=== PATIENT | female | born 1965 | race Caucasian/White ===

== ENCOUNTER 2020-02-05 11:25 | Outpatient (CLI) | payer BC, SELFPAY ==
--- NOTE | ~2020-02-05 | MM_ITS ---
EXAMINATION: MM screening [facility] BI w inna HISTORY: Screening mammogram TECHNIQUE: Craniocaudal and mediolateral oblique 3-D tomosynthesis images were obtained and synthetic 2-D images were generated. CAD analysis was submitted and interpreted. COMPARISON: 01/23/2019 bilateral digital screening mammogram 01/12/2018 diagnostic left digital mammogram and limited left breast ultrasound 12/28/2017 bilateral digital screening mammogram BREAST PARENCHYMAL COMPOSITION: There are scattered areas of fibroglandular density. FINDINGS: Asymmetric densities are noted in the posterior mid to upper lateral left breast, not evide nt on 01/23/2019. Diagnostic left mammogram and left breast ultrasound examination are recommended. Otherwise there is no evidence of suspicious mass, calcification, or architectural distortion to sug gest malignancy in either breast. There has been no other suspicious interval change. IMPRESSION: 1. New posterior mid to upper lateral left breast densities. 2. Diagnostic left mammogram and left breast ultrasound examination are recommended. BI-RADS Category 0: Incomplete: Needs additional imaging evaluation. Reviewed, dictated and finalized at location A. OR ADMINISTRATOR SUPPORT IMPRESSION: 1. New posterior mid to upper lateral left breast densities. 2. Diagnostic left mammogram and left breast ultrasound examination are recomme nded. BI-RADS Category 0: Incomplete: Needs additional imaging evaluation.
== END 2020-02-05 11:26 | disposition home or self-care (01) ==
LOC: ANHIMG 11:27
PROVIDERS: PCP Internal Medicine; Visit Provider Student in an Organized Health Care Education/Training Program
DX: Z12.31 Encounter for screening mammogram for malignant neoplasm of breast (principal); R92.8 Other abnormal and inconclusive findings on diagnostic imaging of breast
CPT/HCPCS: 77063; 77067

== ENCOUNTER 2020-03-09 11:16 | Outpatient (CLI) | payer BC, SELFPAY ==
--- NOTE | ~2020-03-09 | MMUS_ITS ---
EXAMINATION: MM diagnostic mammo unilat LT, US breast LT limited HISTORY: Left breast asymmetry on screening mammogram TECHNIQUE: Additional 3-D tomosynthesis images of the left breast were performed and synthetic 2-D im ages were generated. CAD analysis was submitted and interpreted. High resolution limited left breast ultrasound was performed. COMPARISON: 02/05/2020, 01/23/2019, 01/22/2018, 12/28/2017 FINDINGS: MAMMOGRAPHIC FINDINGS: An approximately 10 mm x 2 mm linear equal density mass is seen at the 3:00 location in the posterior third of the breast 12 cm from the nipple which appears to be contiguous by a thin line of tissue wi th a 4 mm mass located slightly more posteriorly. On some images, this has an appearance similar to c omparison mammograms. No suspicious calcification or architectural distortion are identified. ULTRASOUND: There are intramammary lymph nodes at the 3:00 location 13 cm from the nipple which account for the m ammographic finding in question. No suspicious interval change is identified. IMPRESSION: 1. No mammographic or sonographic evidence of malignancy. 2. Recommend routine screening mammography in one year. BI-RADS Category 2: Benign finding(s). Reviewed, dictated and finalized at location A. 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 No mammographic or sonographic evidence of malignancy. 2. Recommend routine screening mammography in one year. BI-RADS Category 2: Benign finding(s).
== END 2020-03-09 11:17 | disposition home or self-care (01) ==
LOC: ANHIMG 11:21
PROVIDERS: PCP Internal Medicine; Visit Provider Student in an Organized Health Care Education/Training Program
DX: R92.8 Other abnormal and inconclusive findings on diagnostic imaging of breast (principal)
CPT/HCPCS: 76642; 77065

== ENCOUNTER 2021-02-10 09:31 | Outpatient (CLI) | payer BC, SELFPAY ==
--- NOTE | ~2021-02-10 | MM_ITS ---
EXAMINATION: MM screening [facility] w inna HISTORY: Screening TECHNIQUE: Craniocaudal and mediolateral oblique 3-D tomosynthesis images were obtained and synthetic 2-D images were generated. CAD analysis was submitted and interpreted. COMPARISON: Comparison to multiple prior studies sequentially, with oldest reviewed study dated 12/05. BREAST PARENCHYMAL COMPOSITION: There are scattered areas of fibroglandular density. FINDINGS: There is no evidence of suspicious mass, calcification, or architectural distortion to sugg est malignancy in either breast. There has been no suspicious interval change. IMPRESSION: 1. No mammographic evidence of malignancy. 2. Recommend routine screening mammography in one year. BI-RADS Category 1: Negative Reviewed, dictated and finalized at location A. 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
== END 2021-02-10 09:32 | disposition home or self-care (01) ==
LOC: ANHIMG 09:34
PROVIDERS: PCP Internal Medicine; Visit Provider Student in an Organized Health Care Education/Training Program
DX: Z12.31 Encounter for screening mammogram for malignant neoplasm of breast (principal)
CPT/HCPCS: 77063; 77067

== ENCOUNTER 2022-06-22 13:22 | Outpatient (CLI) | payer BC, SELFPAY ==
--- NOTE | ~2022-06-22 | MM_ITS ---
EXAMINATION: MM screening [facility] BI w inna HISTORY: Screening mammogram TECHNIQUE: Craniocaudal and mediolateral oblique 3-D tomosynthesis images were obtained and synthetic 2-D images were generated. CAD analysis was submitted and interpreted. COMPARISON: 02/10/2021, 03/09/2020, 02/05/2020 BREAST PARENCHYMAL COMPOSITION: There are scattered areas of fibroglandular density. FINDINGS: No suspicious mass, calcification, or architectural distortion are identified in either khoa ast to suggest malignancy. There has been no suspicious interval change. IMPRESSION: 1. No mammographic evidence of malignancy. 2. Recommend routine screening mammography in one year. BI-RADS Category 1: Negative Reviewed, dictated and finalized at location A.
== END 2022-06-22 13:23 | disposition home or self-care (01) ==
PROVIDERS: PCP Internal Medicine; Visit Provider Nurse Practitioner
DX: Z12.31 Encounter for screening mammogram for malignant neoplasm of breast (principal)
CPT/HCPCS: 77063; 77067

== ENCOUNTER 2024-05-30 07:25 | Outpatient (CLI) | payer BC, SELFPAY ==
--- NOTE | ~2024-05-30 | MM_ITS ---
EXAMINATION: MM screening [facility] BI w inna HISTORY: Screening TECHNIQUE: Craniocaudal and mediolateral oblique 3-D tomosynthesis images were obtained and synthetic 2-D images were generated. CAD analysis was submitted and interpreted. COMPARISON: 06/22/2022 and dating back to 02/05/2020 BREAST PARENCHYMAL COMPOSITION: There are scattered areas of fibroglandular density. FINDINGS: Redemonstration of an intramammary lymph node (likely) within the upper outer quadrant of t he left breast, minimally increased in size from prior (now measuring 5.2 mm compared with 4.0 mm on the previous study in 2022). Otherwise parenchymal pattern without suspicious microcalcifications, architectural distortion, discr ete masses or significant asymmetry. IMPRESSION: 1. No mammographic evidence of malignancy. 2. Recommend routine screening mammography in one year. BI-RADS Category 2: Benign finding(s). Reviewed, dictated and finalized at location A.
--- OUTSIDE RECORDS SUMMARY | 2024-05-30 07:29 | XMS_ITS | Clinical Summary ---
Author Organization [facility] [place] [address] Address [address] [place] [phone] Care Team Providers Care Tongue Carrier Name Role Phone Unknown, Notinfile Primary Care Provider Unavail able Allergies Active Allergy Reactions Criticality Noted Date Comments Cefaclor Rash Medium 10/24/2007 Clonidine Rash Medium 12/27/2021 Bleeding rash Pregabalin Rash Medium 12/27/2021 Gabapentin Unknown 12/27/2021 Penicillins Rash Medium 12/29/2011 Sulfa (Sulfonamide Antibiotics) Rash Medium 10/05 Medications al & mag hydroxide with simethicone-dip henhydramine-li docaine (MAGIC MOUTHWASH) suspension [id number] s:Pharyngitis due to other organism Swish and swallow 10 mL every 4 (four) hours as needed (for pain) 100 mL 12/27/2021 Active Active Problems No known active problems Social History Tobacco Use Types Packs/Day Years Used Date Smoking Tobacco: Never Assessed Comments Unknown Sex and Gender Information Value Date Recorded Sex Assigned at Not on file Legal Sex Female 11:07 AM CDT Gender Identity Not on file Sexual Orientation Not on file Obstetrics History Last Filed Vital Signs Vital Sign Reading Time Taken Comments Blood Pressure 130/83 12/27/2021 2:15 PM CDT Pulse 78 12/27/2021 2:15 PM CDT Temperature 36.9 C (98.4 F) 12/27/2021 2:15 PM CDT Respiratory Rate 16 12/27/2021 2:15 PM CDT Oxygen Saturation 98% 12/27/2021 2:15 PM CDT Inhaled Oxygen Concentration - - Weight 113.4 kg (250 lb) 12/27/2021 2:15 PM CDT Height 174 cm (5' 8.5 ) 12/27/2021 2:15 PM CDT Body Mass Index 37.46 12/27/2021 2:15 PM CDT Plan of Treatment Health Maintenance Due Date Last Done Comments Breast Cancer Screening-Mammogram 1965 Cervical Cancer Screening 1965 Colon Cancer Screening-Colonoscopy 1965 Depression Screening 1965 Hepatitis C Screening 1965 DTaP/Tdap/Td Vaccine (1 - Tdap) 01/02/1975 Hepatitis B Screening 01/02/1982 Regular Well Visit/Exam 18-64 01/02/1982 Zoster Vaccine (1 of 2) 01/02/2014 Covid-19 Vaccine (3 - 2023-2 5 season) 2023 04/30/2021, 05/08/2020 Influenza Vaccine (#1) 2023 Pneumococcal vaccine <65 Aged Out No longer eligible based on patient's age to complete this topic Insurance [employer] OOS [employer] OOS Care Teams Tongue Carrier Relationship Specialty Start Date End Date Unknown, Notinfile PCP - General 12/27/21
--- OUTSIDE RECORDS SUMMARY | 2024-05-30 07:29 | XMS_ITS | Referral Summary ---
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 Name Role Phone Unknown, Notinfile Primary Care Provider Unavail able Allergies Active Allergy Reactions Criticality Noted Date Comments Cefaclor Rash Medium 10/24/2007 Clonidine Rash Medium 12/27/2021 Bleeding rash Pregabalin Rash Medium 12/27/2021 Gabapentin Unknown 12/27/2021 Penicillins Rash Medium 12/29/2011 Sulfa (Sulfonamide Antibiotics) Rash Medium 10/05 Medications al & mag hydroxide with simethicone-dip henhydramine-li docaine (MAGIC MOUTHWASH) suspension [id number] s:Pharyngitis due to other organism Swish and [...] on file Sexual Orientation Not on file Last Filed Vital Signs Vital Sign Reading [...] 12/27/2021 2:15 PM CDT Plan of Treatment Not on file Insurance [employer] ACCESS OOS [employer] ACCESS OOS Care Teams Shore Working Supervisor Relationship Specialty Start Date End Date Unknown, Notinfile PCP - General 12/27/21
== END 2024-05-30 07:26 | disposition home or self-care (01) ==
LOC: ANHIMG 07:26
PROVIDERS: Visit Provider Nurse Practitioner Family
DX: Z12.31 Encounter for screening mammogram for malignant neoplasm of breast (principal)
CPT/HCPCS: 77063; 77067